=== PATIENT | male | born 1965 | race Caucasian/White ===

== ENCOUNTER 2017-07-11 11:03 | Emergency (ER) | payer BC ==
[2017-07-11] MEDS ORDERED: ASPIRIN 325 MG TABLET PO ONE (11:19)
--- NOTE | 2017-07-11 11:23 | Emergency Department Record ---
History of Present Illness - General Chief Complaint: Chest Pain Stated Complaint: CHEST PAIN Time Seen by Provider: 07/11/17 11:11 Source: Patient Mode of Arrival: Ambulatory Limitations: No limitations - History of Present Illness Initial Comments: The patient is here due to a one day hx of L sided CP. The pain mainly was present yesterday and was described as a sharp stabbing pain in the L chest that intermittently radiated to the L arm. He did have mild SOB with it but no sweating or nausea or back pain. The pain waxed and waned during the day and is mainly gone today. Last night the patient did experience L arm numbness but that has resolved also. His only cardiac risk factor is family hx. He states he believes his dad has heart issues at age 77. The patient also has no hx of CP with exertion or MCCOY. MD Complaint: Chest pain Onset/Timin -: Days(s) Onset: Awoke with symptoms Pain Location: Left chest Pain Radiation: LUE Quality: Other Consistency: Intermittent Treatments Prior to Arrival: None - Related Data Home Medications Medication Instructions Recorded Confirmed Last Taken No Home Med [NO HOME MEDS] 07/11/17 07/11/17 Unknown Allergies Allergy/AdvReac Type Severity Reaction Status Date / Time No Known Drug Allergies Allergy Verified 07/11/17 11:11 Travel Screening - Travel/Exposure Within Last 30 Days Have you traveled within the last 30 days?: No - Travel/Exposure Within Last Year Have you traveled outside the [place] in the last year?: No - Additonal Travel Details Have you been exposed to anyone with a communicable illness?: No Review of Systems Constitutional: Denies: Chills, Fever Eyes: Denies: Eye discharge ENT: Denies: Congestion Respiratory: Denies: Cough, Dyspnea Past Medical History - SOCIAL HISTORY Smoking Status: Former smoker Alcohol Use: Rare Drug Use: Rare Drug Use Detail:: Marijuana - RESPIRATORY Hx Respiratory Disorders: No - CARDIOVASCULAR Hx Cardio Disorders: No - NEURO Hx Neuro Disorders: No - GI Hx GI Disorders: No - Hx Genitourinary Disorders: No - ENDOCRINE Hx Endocrine Disorders: No - MUSCULOSKELETAL Hx Musculoskeletal Disorders: No - PSYCH Hx Psych Problems: No - HEMATOLOGY/ONCOLOGY Hx Hematology/Oncology Disorders: No Family Medical History Any Significant Family History?: No Hx Heart Disease: Grandparents Physical Exam - General General Appearance: Alert, Oriented x3, Cooperative, No acute distress - Head Head exam: Atraumatic, Normocephalic, Normal inspection - Eye Eye exam: Normal appearance, PERRL, EOMI - ENT Throat exam: Normal inspection. negative: Tonsillar erythema, Tonsillar exudate - Neck Neck exam: Normal inspection, Full ROM, Other (Neg carotid bruits.). negative: Tenderness - Respiratory Respiratory exam: Normal lung sounds bilaterally. negative: Respiratory distress - Cardiovascular Cardiovascular Exam: Regular rate, Normal rhythm, Normal heart sounds - Extremities Extremities exam: Normal inspection, Full ROM, Normal capillary refill, Other ( radial pulses 2+ bilaterally.). negative: Tenderness - Neurological Neurological exam: Alert. negative: Motor sensory deficit Course Vital Signs 07/11/17 11:09 Temperature 98.2 F Pulse Rate [ 71 Pulse Ox Probe] Respiratory 14 Rate Blood Pressure 137/95 [Left Arm] Pulse Ox 97 - Reevaluation(s) Reevaluation #1: The patient is doing very well at this time. He denies any pain or discomfort at this time and is resting comfortably. I did discuss the issues with the patient and and did recommend a short stay hospital admission due to the etiology of the pain not being clear. Presently his workup has been basically normal and does not demonstrate any cardiac problems or issues. He also is very low risk for a PE due to being low risk by Wells score and PERC neg so I do not think pursuing a PE dx is needed. The patient is refusing to be admitted so I did discuss the risks of refusing with him which include going home and having an CA, stroke, becoming disabled and dying. The patient understands and accepts the risks and understands that we cannot be held liable for not evaluating the symptoms. He will return to the ER for recheck if the symptoms return. He has proper decision making capacity and understands and accepts the risks. I did also discuss the case with Dr. Hidalgo and he will see the patient in the office soon for further evaluation. 07/11/17 12:20 07/11/17 12:22 07/11/17 12:31 07/11/17 12:46 Medical Decision Making - Data Complexity MDM Data: Labs Ordered and/or Reviewed, X-Ray Ordered and/or Reviewed, EKG Ordered and/or Reviewed - Lab Data Result diagrams: 07/11/17 11:26 07/11/17 11:26 - EKG Data -: EKG Interpreted by Me EKG: No Acute Changes, Normal EKG - Radiology Data Radiology results: Report reviewed (CXR: possible COPD, O/W neg.) Disposition Disposition: Discharge Clinical Impression: Atypical chest pain Disposition: Against Medical Advice Condition: (2) Stable Instructions: Chest Pain (ED) Additional Instructions: Please take an ASA daily and have your appointment with Dr. Hidalgo moved up. Return to the ER for any worsening symptoms. Forms: Patient Portal Access Time of Disposition: 12:25 Quality - Quality Measures Quality Measures: N/A - Blood Pressure Screening View Details: Yes Does Patient Have Any of the Following: No Blood Pressure Classification: Hypertensive Reading Systolic Measurement: 139 Diastolic Measurement: 95 Screening for High Blood Pressure: < Pre-Hypertensive BP, F/U Documented > [ [id number]] Pre-Hypertensive Follow-up Interventions: Referral to alternative/primary care provider.
[2017-07-11 11:31] LABS: BASO % 0.3 % (0-6); EOS % 0.7 % (0-6); GRAN % 63.7 % (47-80); HEMATOCRIT 44.7 % (42.0-52.0); HEMOGLOBIN 15.4 gm/dl (14.0-18.0); LYMPH % 29.2 % (16-45); MEAN CELL VOLUME 85.1 fl (81-97); MEAN CORPUSCULAR HEMOGLOBIN 29.3 pg (27-33); MEAN CORPUSCULAR HGB CONC 34.5 g/dl (32-36); MEAN PLATELET VOLUME 9.2 fl (7.4-10.4); MONO % 6.1 % (0-9); PLATELET COUNT 330 K/uL (130-400); RED BLOOD COUNT 5.25 M/uL (4.40-5.70); RED CELL DISTRIBUTION WIDTH 12.9 % (11.5-14.5); WHITE BLOOD COUNT W/O DIFF 7.4 K/uL (4.2-12.2)
[2017-07-11 11:45] LABS: BLOOD UREA NITROGEN 14 mg/dL (6-20); CREATININE 0.7 mg/dL (0.7-1.2); EST GLOMERULAR FILTRATION RATE > 60 mL/min; TOTAL PROTEIN 8.3 g/dL (6.6-8.7)
[2017-07-11 11:47] LABS: GLUCOSE,RANDOM 108 mg/dL (74-109)
[2017-07-11 11:48] LABS: INR 1.04; PARTIAL THROMBOPLASTIN TIME 26.1 SECONDS (24.5-39.1); PROTHROMBIN TIME (PATIENT) 11.2 SECONDS (9.5-12.1)
[2017-07-11 11:50] LABS: ALB/GLOB RATIO 1.7 (1.1-1.8); ALBUMIN 5.2 g/dL (4.0-5.0); ALKALINE PHOSPHATASE 53 U/L (40-129); ALT/SGPT 22 U/L (<41); AST/SGOT 18 U/L (10.0-50.0); CREATINE PHOSPHOKINASE 105 U/L (39-308)
[2017-07-11 11:52] LABS: CKMB 2.8 ng/mL (<6.73)
--- NOTE | 2017-07-12 09:43 | RADIOLOGY REPORT ---
DATE: 07/11/2017 at 11:38 a.m. EXAM: TWO-VIEW, CHEST. HISTORY: Chest pain for two days. TECHNIQUE: PA and lateral views. COMPARISON: Two-view, chest, dated 12/16/2015. FINDINGS: Heart size is normal. The lungs appear somewhat hyperinflated which may represent underlying chronic obstructive pulmonary disease. No acute infiltrate identified. No pleural effusion or pneumothorax evident. IMPRESSION: THE LUNGS APPEAR SOMEWHAT HYPERINFLATED. NO ACUTE INFILTRATE IDENTIFIED. JOB NUMBER: [id number] MTDD
== END 2017-07-11 12:38 | disposition left against medical advice (07) ==
LOC: ER 11:03
DX: R07.89 Other chest pain (principal); R06.02 Shortness of breath; R20.0 Anesthesia of skin; Z87.891 Personal history of nicotine dependence
CPT/HCPCS: 71046; 80053; 82550; 82553; 84484; 85025; 85379; 85610; 85730; 93005; 93010; 99284